=== PATIENT | female | born 1995 | race Caucasian/White ===

== ENCOUNTER 2025-05-01 11:40 | Outpatient (CLI) | payer OTHER, SELFPAY ==
--- OUTSIDE RECORDS SUMMARY | 2002-08-20 | XMS_ITS | Encounter Summary ---
Author Organization [facility] Address [address] [place] [address] Care Team Providers Care Outdoor Landscape Architect Name Role Phone Unavailable Primary Care Provider Unavailabl e Encounter Details Date Type Department Care Team (Late st Contact Info) Description 08/20/[address] [facility] Department of Radiology [address] [place] [phone] Social History Tobacco Use Types Packs/Day Years Used Date Smoking Tobacco: Never Assessed Comments Unknown Sex and Gender Information Value Date Recorded Sex Assigned at Not on file Legal Sex Female 5:13 AM EST Gender Identity Not on file Sexual Orientation Not on file documented as of this encounter Plan of Treatment Not on file documented as of this encounter Visit Diagnoses Not on filedocumented in this encounter
--- OUTSIDE RECORDS SUMMARY | 2017-12-21 14:45 | XMS_ITS | Encounter Summary ---
Author Organization [facility] [place] [address] Care Team Providers Care Rate Engineer Name Role Phone Lai Harley MD Primary Care Provider [phone] Encounter Details Date Type Department Care Team (Late st Contact Info) Description 12/21/2017 1:45 PM EST Hospital Encounter [place] [address] Social History Tobacco Use Types Packs/Day Years Used Date Smoking Tobacco: Former Cigarettes 0.3 1 1 12/07/2011 - 10/06/2013 Smokeless Tobacco: Never Alcohol Use Standard Drinks/Week Comments No 0 (1 standard drink = 0.6 oz pur e alcohol) PHQ-2 Answer Date Recorded PHQ-2 Total Score 0 11/06/2022 Sexually Active Control Partners Comments Yes Male Comments No Sex and Gender Information Value Date Recorded Sex Assigned at Not on file Legal Sex Female 8:21 PM EDT Gender Identity Not on file Sexual Orientation Not on file Occupation Industry Job Start Date Job End Date Not on file Not on file Not on file Not on file COVID-19 Exposure Response Date Recorded In the last 10 days, have yo u been in contact with someone who was confirmed or suspected to have Coronavirus/COVID-19? No / Unsure 11/06/2022 8:26 AM EST documented as of this encounter Functional Status * Cognitive and Functional Status Question Answer Date of Assessment Author Is the person deaf or does h e/she have serious difficulty hearing? No 11/09/2022 12:04 PM EST Sti th, Savannah Porras RN Is the person blind or does he/she have serious difficulty seeing even when wearing glasses? No 11/09/2022 12:04 PM Savannah Mendez RN Does this person have seriou s difficulty walking or climbing stairs? No 11/09/2022 12:04 PM Savannah Mendez RN Does this person have diffic ulty dressing or bathing? No 11/09/2022 12:04 PM Savannah Mendez RN * Alcohol Screening Score Answer Date of Assessment Author 0 11/06/2022 9:00 AM Becki Girard RN * Drug Screening Score Answer Date of Assessment Author 0 11/06/2022 9:00 AM Becki Girard RN * Question Answer Date of Assessment Author How often do you have a drin k containing alcohol? 0 11/06/2022 9:00 AM Mary Girard RN How many drinks containing a lcohol do you have on a typical day when you are drinking? 0 11/06/2022 9:00 AM Mary Girard RN How often do you have six or more drinks on one occasion? 0 11/06/2022 9:00 AM Missy Girard RN AUDIT-C to Determine Rows 4-10 0 11/06/2022 9:00 AM Mary Girard RN * Is the person deaf or does he/she have serious difficulty hearing? Answer Date of Assessment Author No 11/22/2017 10:26 PM Rand Shirley RN * Is the person blind or does he/she have serious difficulty seeing even when wearing glasses? Answer Date of Assessment Author No 11/22/2017 10:26 PM Rand Shirley RN * Does this person have serious difficulty walking or climbing stairs? Answer Date of Assessment Author No 11/22/2017 10:26 PM Rand Shirley RN * Does this person have difficulty dressing or bathing? Answer Date of Assessment Author No 11/22/2017 10:26 PM Rand Shirley RN * Because of a physical, mental or emotional condition, does this person have difficulty doing errands alone such as visiting a doctor's office or shopping? Answer Date of Assessment Author No 11/22/2017 10:26 PM Rand Shirley RN * PHQ-2 Total Score Answer Date of Assessment Author 0 11/06/2022 9:10 AM Becki Girard RN * PHQ-9 Total Score Answer Date of Assessment Author 0 11/06/2022 9:10 AM Becki Girard RN * Question Answer Date of Assessment Author Little interest or pleasure in doing things 0 11/06/2022 9:10 AM Mary Girard RN Feeling down, depressed, or hopeless 0 11/06/2022 9:10 AM Mary Girard RN * SHASHI-7 Total Score Answer Date of Assessment Author 0 11/06/2022 9:10 AM Becki Girard RN * Question Answer Date of Assessment Author Feeling Nervous, Anxious, or on Edge 0 11/06/2022 9:10 AM Mary Girard RN Not Being Able to Stop or Co ntrol Worrying 0 11/06/2022 9:10 AM Mary Girard RN Worrying too Much About Diff erent Things 0 11/06/2022 9:10 AM Mary Girard RN Trouble Relaxing 0 11/06/2022 9:10 AM Mary Luz RN Being so Restless That it is Hard to Sit Still 0 11/06/2022 9:10 AM Mary Girard RN Becoming Easily Annoyed or Irritable 0 11/06/2022 9:10 AM Mary Girard RN Feeling Afraid as if Somethi ng Awful Might Happen 0 11/06/2022 9:10 AM Mary Girard RN * Suicide Severity Rating Answer Date of Assessment Author No Risk 11/06/2022 8:26 AM Becki Girard RN * [place] Suicide Severity Rating Scale (Q shift for moderate and high) Question Answer Date of Assessment Author 1. In the past month, have y ou wished you were or wished you could go to sleep and not wake up? 0 11/06/2022 8:26 AM Mary Etienne, ERAN 2. In the past month, have y ou actually had any thoughts of killing yourself? (If no, skip to question 6) 0 11/06/2022 8:26 AM Mary Girard, ERAN 6. Have you ever done anythi ng, started to do anything, or prepared to do anything to end your life? 0 11/06/2022 8:26 AM Mary Girard RN documented as of this encounter Mental Status * Cognitive and Functional Status Question Answer Entry Date Author Because of a physical, menta l or emotional condition, does this person have difficulty doing errands alone such as visiting a doctor's office or shopping? No 11/09/2022 12:04 PM Savannah Mendez RN Because of a physical, menta l or emotional condition, does this person have serious difficulty concentrating, remembering or making decisions? No 11/09/2022 12:04 PM Savannah Mendez RN * Because of a physical, mental or emotional condition, does this person have serious difficulty concentrating, remembering or making decisions? Answer Entry Date Author No 11/22/2017 10:26 PM Rand Shirley RN documented in this encounter Plan of Treatment Not on file documented as of this encounter Goals Goal Patient Goal Type Associated Problems Recent Progress Patient-Stated? Author Maintain a healthy diet, exercise regularly and maintain an ideal body weight General No Catalina Salinas LPN Stay Tobacco Free Lifestyle No Catalina Salinas LPN documented as of this encounter Visit Diagnoses Not on filedocumented in this encounter Additional Health Concerns Infection Onset Date Last Indicated Resolved Time INFLUENZA 11/22/2017 11/22/2017 01/08/2018 8:21 AM EST documented as of this encounter Care Teams Rate Engineer Relationship Specialty Start Date End Date Lai Harley MD [address] [place] [address] PCP - General 04/11/11 03/30/20 documented as of this encounter
[2025-05-01 18:29] LABS: Basophils % 0.3 % (0.1-2.0); Eosinophils % 0.3 % (0.1-12.0); Hematocrit 43.5 % (37.0-47.0); Hemoglobin 13.9 g/dL (12.2-16.2); Immature Granulocytes # 0.05 10^3uL; Immature Granulocytes % 0.4 %; Lymphocytes # 1.7 K/mm3 (0.7-4.5); Lymphocytes % 12.6 % (10-50); Mean Corpuscular Hemoglobin 26.7 pg (27.0-31.2); Mean Corpuscular Volume 83.5 fl (81-99); Mean Platelet Volume 8.8 fl (7.4-10.4); Monocytes # 0.7 K/mm3 (0.1-1.0); Monocytes % 5.4 % (1.7-9.3); Neutrophils # 10.7 K/mm3 (1.8-7.8); Nucleated Red Blood Cells # 0 10^3/uL; Nucleated Red Blood Cells % 0 %; Platelet Count 276 K/mm3 (142-424); Red Blood Count 5.21 M/mm3 (4.20-5.40); Red Cell Distribution Width 13.2 % (11.5-17.5); Red Cell Distribution Width-SD 40.8 fL; White Blood Count 13.2 K/mm3 (4.8-10.8)
[2025-05-01 19:17] LABS: Alanine Aminotransferase 14 U/L (12-78); Albumin Level 4.8 g/dl (3.5-5.0); Albumin/Globulin Ratio 1.5 (1.1-1.8); Alkaline Phosphatase 51 U/L (38-126); Anion Gap 14.4 mEq/L (5-15); Aspartate Amino Transferase 22 U/L (14-36); Bilirubin,Total 0.9 mg/dl (0.2-1.3); Blood Urea Nitrogen 11 mg/dl (7-17); Calcium 9.9 mg/dl (8.4-10.2); Carbon Dioxide 26 mmol/L (22.0-30.0); Chloride 99 mmol/L (98-107); Estimated Glomerular Filt Rate 99 ml/min (>60); GFR (African American) 120 ML/MIN (>60); Globulin 3.1 g/dL (1.3-3.2); Glucose 92 mg/dl (74-100); Potassium 4.4 mmoL/L (3.5-5.1); Sodium 135 mmol/L (136-145); Total Protein,Serum 7.9 g/dl (6.3-8.2)
[2025-05-01 19:44] LABS: Thyroid Stimulating Hormone 1.08 uIU/mL (0.465-4.68)
[2025-05-01 19:54] LABS: HIV Combo NEGATIVE (Negative)
[2025-05-01 20:03] LABS: Hepatitis C Ab Qual. W/ RFX NEGATIVE (Negative)
--- OUTSIDE RECORDS SUMMARY | 2025-05-02 10:18 | XMS_ITS | Encounter Summary ---
Author Organization [facility] Address [address] [place] [address] Care Team Providers Care Band Sewer Name Role Phone Jazmin Barnett M.D. Primary Care Provider [phone] Encounter Details Date Type Department Care Team (Late st Contact Info) Description 06/12/2008 Clinical Note [facility] Division of Dentistry [address] [place] [phone] Provider, Historical Social History Tobacco Use Types Packs/Day Years Used Date Smoking Tobacco: Never Assessed Comments Unknown Sex and Gender Information Value Date Recorded Sex Assigned at Not on file Legal Sex Female 5:13 AM EST Gender Identity Not on file Sexual Orientation Not on file documented as of this encounter Progress Notes * Provider, Historical - 06/12/2008 12:00 AM EDT P: Hygiene~T: Med hx rev, exam, prophy, F-tx, bwx x 2 read/dx. Decay as charted. Encouraged flossing, OHI given. ~E: +~N:RTC for #15(L), 18(b) resin. #18 partially subgingival (use RDI and consider amalgam if needed). ~~I approve the patient-related information obtained by the insurance administrative assistant, hygienist,resident and/or attending pertaining to the patient's condition, findings, history and/or treatment.~Dentist/Painter Plate verified correct patient, correct site, correct procedure, correct positioning of patient and special equipment if needed, with Dentist/Painter Plate performing procedure immediately prior to beginning the procedure.~Note authored by: Ryan Jennings ([email or web address]) documented in this encounter Plan of Treatment Not on file documented as of this encounter Visit Diagnoses Not on filedocumented in this encounter Care Teams Band Sewer Relationship Specialty Start Date End Date Jazmin Barnett M.D. [address] [facility] [place] [address] PCP - General 06/12/08 documented as of this encounter
--- OUTSIDE RECORDS SUMMARY | 2025-05-02 10:18 | XMS_ITS | Encounter Summary ---
Author Organization [facility] Address [address] [place] [address] Care Team Providers Care Polo Coach Name Role Phone Jazmin Barnett M.D. Primary Care Provider [phone] Encounter Details Date Type Department Care Team (Late st Contact Info) Description 06/12/2008 Clinical Note [facility] Division of Dentistry [address] [place] [phone] Provider, Historical Social History Tobacco Use Types Packs/Day Years Used Date Smoking Tobacco: Never Assessed Comments Unknown Sex and Gender Information Value Date Recorded Sex Assigned at Not on file Legal Sex Female 5:13 AM EST Gender Identity Not on file Sexual Orientation Not on file documented as of this encounter Progress Notes * Provider, Historical - 06/12/2008 12:00 AM EDT Dentist/Barrel Inspector verified correct patient, correct site, correct procedure, correct positioning ofpatient and special equipment if needed, with Dentist/Barrel Inspector performing procedure immediately prior to beginning the procedure.~Note authored by: Halima Mead ([email or web address]) documented in this encounter Plan of Treatment Not on file documented as of this encounter Visit Diagnoses Not on filedocumented in this encounter Care Teams Polo Coach Relationship Specialty Start Date End Date Jazmin Barnett M.D. [address] [facility] [place] [address] PCP - General 06/12/08 documented as of this encounter
--- OUTSIDE RECORDS SUMMARY | 2025-05-02 10:18 | XMS_ITS | Encounter Summary ---
Author Organization [facility] Address [address] [place] [address] Care Team Providers Care Squad Sergeant Name Role Phone Jazmin Barnett M.D. Primary Care Provider [phone] Encounter Details Date Type Department Care Team (Late st Contact Info) Description 11/30/2007 Clinical Note [facility] Division of Dentistry [address] [place] [phone] Provider, Historical Social History Tobacco Use Types Packs/Day Years Used Date Smoking Tobacco: Never Assessed Comments Unknown Sex and Gender Information Value Date Recorded Sex Assigned at Not on file Legal Sex Female 5:13 AM EST Gender Identity Not on file Sexual Orientation Not on file documented as of this encounter Progress Notes * Provider, Historical - 11/30/2007 12:00 AM EST P: Caries on #19-m~T: N2O/O2 0:50:0 for 20 min, 3 min O2 flush. 36 mg lidocaine w/ 1:100,[address], MP.~ - #19 MO resin - prepped, t-band, [id number]-bneh-RGM, finished and polished, checked margins, sealed occlusal.~E: ++~N: 6MRNote authored by: Anirudh Loza ([email or web address]) documented in this encounter Plan of Treatment Not on file documented as of this encounter Visit Diagnoses Not on filedocumented in this encounter Care Teams Squad Sergeant Relationship Specialty Start Date End Date Jazmin Barnett M.D. [address] [facility] [place] [address] PCP - General 06/12/08 documented as of this encounter
--- OUTSIDE RECORDS SUMMARY | 2025-05-02 10:18 | XMS_ITS | Clinical Summary ---
Author Organization [facility] Address [address] [place] [address] Care Team Providers Care Outdoor Illuminating Engineer Name Role Phone Jazmin Barnett M.D. Primary Care Provider [phone] Source Comments [facility] is fully rolled [facility] with thefollowing exceptions:[facility] Social History Tobacco Use Types Packs/Day Years Used Date Smoking Tobacco: Never Assessed Comments Unknown Sex and Gender Information Value Date Recorded Sex Assigned at Not on file Legal Sex Female 5:13 AM EST Gender Identity Not on file Sexual Orientation Not on file Plan of Treatment Health Maintenance Due Date Last Done Comments VARICELLA IMMUNIZATION (1 of 2 - 13+ 2-dose series) 2008 COVID-19 Vaccine ( season) 2024 AMB SEASONAL FLU VACCINE (Season Ended) 2025 DTAP/Tdap/Td IMMUNIZATION (8 - Td or Tdap) 11/20/2027 11/20/2017, 06/05/2006, 07/07/1999, Additional history exists HEPATITIS B IMMUNIZATION Completed 996, 1995, 1995 HIB IMMUNIZATION Completed 09/12/1996, , 1995, Additional history exists IPV IMMUNIZATION Completed 07/07/1999, , 1995, Additional history exists MMR IMMUNIZATION Completed 07/17/1999, 09/12/1996 MCV4 IMMUNIZATION Aged Out 08/10/2007 No longer eligible based on patient's age to complete this topic HPV IMMUNIZATION Aged Out No longer e ligible based on patient's age to complete this topic MENINGOCOCCAL B VACCINE Aged Out No l onger eligible based on patient's age to complete this topic PNEUMOCOCCAL IMMUNIZATION Aged Out No longer eligible based on patient's age to complete this topic Respiratory Syncytial Virus (RSV) <20mo Aged Out No longer eligible based on patient's age to complete this topic Care Teams Outdoor Illuminating Engineer Relationship Specialty Start Date End Date Jazmin Barnett M.D. [address] [facility] [place] [address] PCP - General 06/12/08
--- OUTSIDE RECORDS SUMMARY | 2025-05-02 10:18 | XMS_ITS | Encounter Summary ---
Author Organization [facility] Address [address] [place] [address] Care Team Providers Care Floor Representative Name Role Phone Jazmin Barnett M.D. Primary Care Provider Encounter Details Date Type Department Care Team (Late st Contact Info) Description 03/16/2009 Clinical Note [facility] Division of Dentistry [address] [place] [phone] Provider, Historical Social History Tobacco Use Types Packs/Day Years Used Date Smoking Tobacco: Never Assessed Comments Unknown Sex and Gender Information Value Date Recorded Sex Assigned at Not on file Legal Sex Female 5:13 AM EST Gender Identity Not on file Sexual Orientation Not on file documented as of this encounter Progress Notes * Provider, Historical - 03/16/2009 12:00 AM EDT Dentist/Line Erector Apprentice verified correct patient identification, procedures with materials and special equipment if needed, images or relevant labs, irrigation solutions (other than water), need for antibiotics, precautions based on medical or medication history.~~: [birth year] ~~Name of Participants in the Time Out: gosnell [email or web address] mcitnosh ~~Pain?: Yes___x_ No ____~Pain Score for visit:___5____~Pain Scale used: (choose one: Marianela Visual Analog Scale, FLACC) ____oucher ~~Note authored by: Carmen Canales ([email or web address]) documented in this encounter Plan of Treatment Not on file documented as of this encounter Visit Diagnoses Not on filedocumented in this encounter Care Teams Floor Representative Relationship Specialty Start Date End Date Jazmin Barnett M.D. [address] [facility] [place] [address] PCP - General 06/12/08 documented as of this encounter
--- OUTSIDE RECORDS SUMMARY | 2025-05-02 10:18 | XMS_ITS | Encounter Summary ---
Author Organization [facility] Address [address] [place] [address] Care Team Providers Care Coal Picker Name Role Phone Jazmin Barnett M.D. Primary Care Provider [phone] Encounter Details Date Type Department Care Team (Late st Contact Info) Description 03/20/[address] [facility] Division of Dentistry [address] [place] [phone] Provider, Historical Social History Tobacco Use Types Packs/Day Years Used Date Smoking Tobacco: Never Assessed Comments Unknown Sex and Gender Information Value Date Recorded Sex Assigned at Not on file Legal Sex Female 5:13 AM EST Gender Identity Not on file Sexual Orientation Not on file documented as of this encounter Progress Notes * Provider, Historical - 03/20/2009 12:00 AM EDT Dentist/Head Host/Hostess verified correct patient identification, procedures with materials and special equipment if needed, images or relevant labs, irrigation solutions (other than water), need for antibiotics, precautions based on medical or medication history.~~: 1995 ~~Name of Participants in the Time Out:__cross/tran ~~Pain?: Yes____ No ____~Pain Score for visit: ~Pain Scale used: (choose one: Marianela Visual Analog Scale, FLACC) ~~Note authored by: Nina Noe ([email or web address]) documented in this encounter Plan of Treatment Not on file documented as of this encounter Visit Diagnoses Not on filedocumented in this encounter Care Teams Coal Picker Relationship Specialty Start Date End Date Jazmin Barnett M.D. [address] [facility] [place] [address] PCP - General 06/12/08 documented as of this encounter
--- OUTSIDE RECORDS SUMMARY | 2025-05-02 10:18 | XMS_ITS | Encounter Summary ---
Author Organization [facility] Address [address] [place] [address] Care Team Providers Care Extra Hand Name Role Phone Jazmin Barnett M.D. Primary Care Provider [phone] Encounter Details Date Type Department Care Team (Late st Contact Info) Description 04/14/2009 Clinical Note [facility] Division of Dentistry [address] [place] [phone] Provider, Historical Social History Tobacco Use Types Packs/Day Years Used Date Smoking Tobacco: Never Assessed Comments Unknown Sex and Gender Information Value Date Recorded Sex Assigned at Not on file Legal Sex Female 5:13 AM EST Gender Identity Not on file Sexual Orientation Not on file documented as of this encounter Progress Notes * Provider, Historical - 04/14/2009 12:00 AM EDT I was present for the procedure. Reviewed the resident note and concurred.~Note authored by: Lukas Bell ([email or web address]) documented in this encounter Plan of Treatment Not on file documented as of this encounter Visit Diagnoses Not on filedocumented in this encounter Care Teams Extra Hand Relationship Specialty Start Date End Date Jazmin Barnett M.D. [address] [place] [address]., [address] [place] [address] PCP - General 06/12/08 documented as of this encounter
--- OUTSIDE RECORDS SUMMARY | 2025-05-02 10:18 | XMS_ITS | Encounter Summary ---
Author Organization [facility] Address [address] [place] [address] Care Team Providers Care Sales Vice President Name Role Phone Jazmin Barnett M.D. Primary Care Provider [phone] Encounter Details Date Type Department Care Team (Late st Contact Info) Description 08/14/2007 Clinical Note [facility] Division of Dentistry [address] [place] [phone] Provider, Historical Social History Tobacco Use Types Packs/Day Years Used Date Smoking Tobacco: Never Assessed Comments Unknown Sex and Gender Information Value Date Recorded Sex Assigned at Not on file Legal Sex Female 5:13 AM EST Gender Identity Not on file Sexual Orientation Not on file documented as of this encounter Progress Notes * Provider, Historical - 08/14/2007 12:00 AM EDT I was present for the visit. Reviewed the findings and films. Agree with treatment plan. Prevident may be needed in the future.~Note authored by: Kai Meehan ([email or web address]) documented in this encounter Plan of Treatment Not on file documented as of this encounter Visit Diagnoses Not on filedocumented in this encounter Care Teams Sales Vice President Relationship Specialty Start Date End Date Jazmin Barnett M.D. [address] [facility] [place], [place] [id number] PCP - General 06/12/08 documented as of this encounter
--- OUTSIDE RECORDS SUMMARY | 2025-05-02 10:18 | XMS_ITS | Clinical Summary ---
Author Organization [facility] Address [address] [address] Phone Care Team Providers Care Inpatient Care Manager Rn Name Role Phone Colleen Olson Girma RUEDA Primary Care Provider + Allergies No known active allergies Medications vit no.[id number] c 27 mg iron- 800 mcg Oral Tablet Take 1 Tablet by mouth daily. Active Active Problems Problem Noted Date Diagnosed Date Normal labor 11/06/2022 39 weeks gestation of 01/31/2018 Shoulder dystocia during labor and delivery, del ivered 01/31/2018 Hx of macrosomia in i n prior , currently 06/25/2017 Overview (06/25/2017): 9lb 6oz; no GDM; no complications with delivery Environmental allergies 07/24/2012 Asthma 07/24/2012 ADHD (attention deficit hyperactivity disorder) Overview (03/07/2011): Sees psychiatry. Encounter for suspected PROM , with rupture of membranes not found Resolved Problems Problem Noted Date Diagnosed Date Resolved Date (normal spontaneous vaginal delivery) 01/31/2018 11/06/2022 Overview (01/31/2018): VFI Addyson Breast Supervision of other normal , antepartum 06/25/2017 11/06/2022 Overview (01/17/2018): CNM pt It's a GIRL! Addyson QUAD/CF:nm;/nml Dating by 6 week sonogram Gita US 18w2d 3vc ant placenta GBS neg Asthma 07/24/2012 11/22/2017 Immunizations Immunization Administration Dates Next Due DTaP 07/07/1999, 6,01/31/1996,1995,1995 Hepatitis B, Unspecified Formulation 06/05/1996, 1995,1995 HiB, Unspecified Formulation 09/12/1996, 01/31/1996,1995,1994 IPV 07/07/1999, 6,1995,1994 MMR 07/17/1999,09/12/1996 Meningococcal Conjugate 08/10/2007 PPD Test 06/17/2011 Tdap 11/20/2017,06/05/2006 Surgical History Surgery Date Site/Laterality Comments DILATION AND CURETTAGE OF UTERUS 02/17/2014 N/A HYSTEROSCOPY INTRAUTERINE DEVICE REMOVAL ; Surgeon: Paige Wright MD; Location: [facility]; Service: Gynecology Medical History Medical History Date Comments ADHD (attention deficit hyperactivity disorder) ADD (attention deficit disorder) Miscarriage Asthma 07/24/2012 Family History Medical History Relation Name Comments No Known Problems Father Colon Cancer Maternal Grandfather No Known Problems Maternal Grandmother Labor Mother Spont Abortions Mother Diabetes Paternal Grandfather Heart Attack Paternal Grandfather Heart Disease Paternal Grandfather stents , CABG Cancer Paternal Grandmother Hypertension Paternal Grandmother Thyroid Disease Paternal Grandmother Relation Name Status Comments Father Alive Maternal Grandfather Alive Maternal Grandmother Alive Mother Alive Paternal Grandfather Paternal Grandmother Social History Tobacco Use Types Packs/Day Years Used Date Smoking Tobacco: Former Cigarettes 0.3 1 1 12/07/2011 - 10/06/2013 Smokeless Tobacco: Never Tobacco Cessation:Counseling Given: Not Answered Alcohol Use Standard Drinks/Week Comments No 0 [...] file Not on file Not on file Obstetrics History Para Term AB IAB SAB Ectopic Multiple Livin g Live Births 6 4 3 1 2 2 0 4 4 Date Outcome GA Total Labor Labor/2nd/3rd Weight Sex Type Anes PTL Arianna A1 A5 Name Clin 2009 Term 0h 15m 9 lb (4.082 kg) F Vag-S pont Epidur al N Livin g 9 9 LOBO MEDINA GIRL 1 Pool Lyles, RN Complications:None Delivery Location:[facility] 2014 SAB 2017 Term 39w 5d 0h 06m 0h 06m 9 lb 4.5 oz (4.21 kg) F Vag-S pont Epidur al N Livin g 8 9 LOBO MEDINA BABY BraedenJudy may CNM Complications:Shoulder dysto abby during labor and delivery,Macrosomia Delivery Location:[facility] 2018 SAB SAB Delivery Location:Other 2019 Term 37w 0d F Vag-S pont Epidur al Livin g Complications:None Delivery Location:Other 2022 36w 3d 0h 05m 0h 05m 6 lb 0.5 oz (2.735 kg) M Vag-S pont Epidur al N Livin g 8 9 SHERRIE GARCIA Amanda Marie, CNM Complications:Velamentous in sertion of umbilical cord in third trimester Delivery Location:[facility] ([facility]) Last Filed Vital Signs Vital Sign Reading Time Taken Comments Blood Pressure 118/72 01/02/2024 9:01 AM EST Pulse 75 01/02/2024 9:01 AM EST Temperature 36.6 C (97.9 F) 01/02/2024 9:01 AM EST Respiratory Rate 16 12/20/2023 3:27 PM EST Oxygen Saturation 98% 01/02/2024 9:01 AM EST Inhaled Oxygen Concentration - - Weight 77.1 kg (170 lb) 01/02/2024 9:01 AM EST Height 160 cm (5' 3 ) 01/02/2024 9:01 AM EST Body Mass Index 30.11 01/02/2024 9:01 AM EST Plan of Treatment Health Maintenance Due Date Last Done Comments Pneumococcal Vaccine 0-49 (1 of 2 - PCV) 2014 Annual Wellness Exam 05/26/2024 05/26/2023 COVID-19 Vaccine ( season) 2024 Influenza Vaccine (Season Ended) 2025 10/19/2017 (Declined) Cervical Cancer Screening 01/11/2026 Pap Smear 01/11/2026 01/11/2023, 06/06, 11/04/2010, Additional history exists DTaP/TDaP/Td (9 - Td or Tdap) 03/04/2030 03/04/2020, 11/20/2017, 06/05/2006, Additional history exists Hepatitis B Vaccine Completed 06/05/1996, 1995, 1995 Chlamydia Screening Discontinued 10/27/2022, 09/22/2022, 01/04/2018, Additional history exists Meningococcal B Vaccine Aged Out No l onger eligible based on patient's age to complete this topic Goals Goal Patient Goal Type Associated Problems Recent Progress Patient-Stated? Author Maintain a healthy diet, exercise regularly and maintain an ideal body weight General No Catalina Salinas LPN Stay Tobacco Free Lifestyle No Catalina Salinas LPN Procedures Procedure Name Priority Date/Time Associated Diagnosis Comments CHLAMYDIA/GC BY TMA STAT 10/27/2022 1 1:00 PM EST CLUTCH REBUILDER CYTOLOGY REPORT Routine 06/22/2017 3 :09 PM EDT from Last 3 Months or Most Recently Relevant to Health Maintenance Results * CHLAMYDIA/GC BY TMA (10/27/2022 11:00 PM EST) Chlamydia trachomatis Not Detected Not Detected 10/28/2022 12:09 PM EST PREFERRED LAB [facility] [place] Neisseria gonorrhoeae Not Detected Not Detected 10/28/2022 12:09 PM EST PREFERRED LAB [facility] [place] Thin Prep SPECIMEN FROM UTERINE CERVIX / Unknown 10/27/2022 11:00 PM EST 10/27/2022 11:07 PM EST Narrative PREFERRED [facility] - 10/28/2022 12:09 PM EST Testing methodology is animal care assistant mediated amplification (TMA) using the Aptima Combo 2 assay from [employer]. A negative result does not completely rule out a Chlamydia trachomatis or Neisseria gonorrhoeae infection due to potential inhibitors or levels present below the limit of detection by this assay. Results are dependent on proper collection and transport of specimen. This test is indicated for medical purposes only and should not be used for legal or forensic purposes. The performance characteristics of this assay were validated by the testing laboratory. This assay is FDA cleared to test the following specimens: clinician-collected endocervical, vaginal, male urethral swab specimens, rectal swabs, and throat/pharyngeal swabs; patient collected vaginal specimens within a clinic setting; Thin Prep Specimens in PreservCyt Solution; and first-stream, unpreserved male and female urine specimens. Detailed methodology is available upon request. Alise Stevenson DO MICROBIOLOGY - GENERAL ORDERABLE S Final Result Blurb [address] [facility], [place] [address] * CLUTCH REBUILDER CYTOLOGY REPORT (06/22/2017 3:09 PM EDT) Geochemistry Teacher Cytology Report PATIENT NAME:CLAUDETTE MEDINA Geochemistry Teacher Cytology Report Accession Number Collected Date/Time Received Date/Time [id number] 06/22/17 15:09 EDT 06/22/17 16:03 EDT GY Specimen Source Specimen Vag/Cerv/Endocx?: Cerv/Endocerv Statement of Adequacy Satisfactory for Evaluation. Transformation Zone Present. Diagnosis NEGATIVE FOR INTRAEPITHELIAL LESION OR MALIGNANCY. Comment This case was not successfully Imaged due to technical reasons and was manually rescreened. The Pap Smear is a screening test that aids in the detection of cervical cancer and cancer precursors. Both false positive and false negative results can occur. The test should be used at regular intervals, and positive results should be confirmed before definitive therapy. Processed using the ThinPrep Landfill Grader automated cytology screening device (Freespee). Stamper Blocker: MELINA GILLILAND 06/27/2017 Completed by: DIRK Weeks (Electronically signed by) 06/27/2017 [facility] 06/22/2017 3:09 PM EDT us Dahlia Nash CNM PATHOLOGY ORDERABLES Fi nal Result [facility] [address] [place] [address] from Last 3 Months or Most Recently Relevant to Health Maintenance Insurance Advance Directives For more information, please contact: [phone] * Full Code (Latest Code Status on File) Date Activated Date Inactivated Comments 11/06/2022 8:56 AM 11/09/2022 4:40 PM * Full Code Date Activated Date Inactivated Comments 01/31/2018 6:02 AM 02/02/2018 8:22 PM Care Teams Inpatient Care Manager Rn Relationship Specialty Start Date End Date Colleen Olson, AGENT [address] [place] [address] PCP - General Nurse Practitioner 05/26/23
--- OUTSIDE RECORDS SUMMARY | 2025-05-02 10:18 | XMS_ITS | Encounter Summary ---
Author Organization [facility] Address [address] [place] [address] Care Team Providers Care Human Resources Hr Generalist Name Role Phone Jazmin Barnett M.D. Primary Care Provider [phone] Encounter Details Date Type Department Care Team (Late st Contact Info) Description 04/14/2009 Clinical Note [facility] Division of Dentistry [address] [place] [phone] Provider, Historical Social History Tobacco Use Types Packs/Day Years Used Date Smoking Tobacco: Never Assessed Comments Unknown Sex and Gender Information Value Date Recorded Sex Assigned at Not on file Legal Sex Female 5:13 AM EST Gender Identity Not on file Sexual Orientation Not on file documented as of this encounter Progress Notes * Provider, Historical - 04/14/2009 12:00 AM EDT Dentist/Jewelry Estimator/Hygienist verified correct patient. ~~:___1995 ~~Pain?: Yes____ No __x__~Pain Score for visit: ~Pain Scale used: (choose one: Marianela Visual Analog Scale, FLACC) ~~Note authored by: Earline Bowen ([email or web address]) documented in this encounter Plan of Treatment Not on file documented as of this encounter Visit Diagnoses Not on filedocumented in this encounter Care Teams Human Resources Hr Generalist Relationship Specialty Start Date End Date Jazmin Barnett M.D. [address] [facility] [address] [place] [address] PCP - General 06/12/08 documented as of this encounter
--- OUTSIDE RECORDS SUMMARY | 2025-05-02 10:18 | XMS_ITS | Encounter Summary ---
Author Organization [facility] Address [address] [place] [address] Care Team Providers Care Employment Attorney Name Role Phone Jazmin Barnett M.D. Primary Care Provider [phone] Encounter Details Date Type Department Care Team (Late st Contact Info) Description 04/14/2009 Clinical Note [facility] Division of Dentistry [address] [place] [phone] Provider, Historical Social History Tobacco Use Types Packs/Day Years Used Date Smoking Tobacco: Never Assessed Comments Unknown Sex and Gender Information Value Date Recorded Sex Assigned at Not on file Legal Sex Female 5:13 AM EST Gender Identity Not on file Sexual Orientation Not on file documented as of this encounter Progress Notes * Provider, Historical - 04/14/2009 12:00 AM EDT Dentist/Forensic Structural Engineer/Hygienist verified correct patient. ~~:__1995 ~~Pain?: Yes____ No __X__~Pain Score for visit:__0 ~Pain Scale used: (choose one: Marianela Visual Analog Scale, FLACC) ___Oucher Note authored by: Anirudh Loza ([email or web address]) documented in this encounter Plan of Treatment Not on file documented as of this encounter Visit Diagnoses Not on filedocumented in this encounter Care Teams Employment Attorney Relationship Specialty Start Date End Date Jazmin Barnett M.D. [address] [facility] [place] [address] PCP - General 06/12/08 documented as of this encounter
--- OUTSIDE RECORDS SUMMARY | 2025-05-02 10:18 | XMS_ITS | Encounter Summary ---
Author Organization [facility] Address [address] [place] [address] Care Team Providers Care Postal Service Sectional Center Manager Name Role Phone Jazmin Barnett M.D. Primary Care Provider [phone] Encounter Details Date Type Department Care Team (Late st Contact Info) Description 10/10/2007 Clinical Note [facility] Division of Dentistry [address] [place] [phone] Provider, Historical Social History Tobacco Use Types Packs/Day Years Used Date Smoking Tobacco: Never Assessed Comments Unknown Sex and Gender Information Value Date Recorded Sex Assigned at Not on file Legal Sex Female 5:13 AM EST Gender Identity Not on file Sexual Orientation Not on file documented as of this encounter Progress Notes * Provider, Historical - 10/10/2007 12:00 AM EST I was present for the visit. Reviewed the findings. Agree with treatment plan.~Note authored by: Kai Meehan ([email or web address]) documented in this encounter Plan of Treatment Not on file documented as of this encounter Visit Diagnoses Not on filedocumented in this encounter Care Teams Postal Service Sectional Center Manager Relationship Specialty Start Date End Date Jazmin Barnett M.D. [address] [place] [address]., [address] [place] [address] PCP - General 06/12/08 documented as of this encounter
--- OUTSIDE RECORDS SUMMARY | 2025-05-02 10:18 | XMS_ITS | Encounter Summary ---
Author Organization [facility] Address [address] [place] [address] Care Team Providers Care Pest Control Worker Name Role Phone Jazmin Barnett M.D. Primary Care Provider [phone] Encounter Details Date Type Department Care Team (Late st Contact Info) Description 10/10/2007 Clinical Note [facility] Division of Dentistry [address] [place] [phone] Provider, Historical Social History Tobacco Use Types Packs/Day Years Used Date Smoking Tobacco: Never Assessed Comments Unknown Sex and Gender Information Value Date Recorded Sex Assigned at Not on file Legal Sex Female 5:13 AM EST Gender Identity Not on file Sexual Orientation Not on file documented as of this encounter Progress Notes * Provider, Historical - 10/10/2007 12:00 AM EST Dentist/Wood Shop Teacher verified correct patient, correct site, correct procedure, correct positioning ofpatient and special equipment if needed, with Dentist/Wood Shop Teacher performing procedure immediately prior to beginning the procedure.~0 painNote authored by: Ingris Santacruz ([email or web address]) documented in this encounter Plan of Treatment Not on file documented as of this encounter Visit Diagnoses Not on filedocumented in this encounter Care Teams Pest Control Worker Relationship Specialty Start Date End Date Jazmin Branett M.D. [address] [place] [address] PCP - General 06/12/08 documented as of this encounter
--- OUTSIDE RECORDS SUMMARY | 2025-05-02 10:18 | XMS_ITS | Encounter Summary ---
Author Organization [facility] Address [address] [place] [address] Care Team Providers Care Tech Ed Teacher Name Role Phone Jazmin Barnett M.D. Primary Care Provider Encounter Details Date Type Department Care Team (Late st Contact Info) Description 07/24/2008 Clinical Note [facility] Division of Dentistry [address] [place] [phone] Provider, Historical Social History Tobacco Use Types Packs/Day Years Used Date Smoking Tobacco: Never Assessed Comments Unknown Sex and Gender Information Value Date Recorded Sex Assigned at Not on file Legal Sex Female 5:13 AM EST Gender Identity Not on file Sexual Orientation Not on file documented as of this encounter Progress Notes * Provider, Historical - 07/24/2008 12:00 AM EDT P: Patient presents for restorative~T: PMH reviewed~ N20/02 0-50-0, 4L/min, 30 min, 3 min post-op 02 flush~ 2% lido with 1:100K epI 18mg infiltration~ 4% articaine with 1:100K epi 1.7ml infiltration~[place]/MP~ #15 - OL resin - remove decay, A/E, Optibond, TPH A1~ #18, #31 - Buccal Amalgam - remove decay, condense carve and burnish amalgam~ Lip biting precuations given~E: +/+~N:6 month recall~~I approve the patient-related information obtained by the cardiology physician assistant, hygienist, resident and/or attending pertaining to the patient's condition, findings, history and/or treatment.~Note authored by:Chintan Brunson ([email or web address]) documented in this encounter Plan of Treatment Not on file documented as of this encounter Visit Diagnoses Not on filedocumented in this encounter Care Teams Tech Ed Teacher Relationship Specialty Start Date End Date Jazmin Barnett M.D. [address] [facility], [address] [place] [address] PCP - General 06/12/08 documented as of this encounter
--- OUTSIDE RECORDS SUMMARY | 2025-05-02 10:18 | XMS_ITS | Encounter Summary ---
Author Organization [facility] Address [address] [place] [address] Care Team Providers Care Waterproofing Supervisor Name Role Phone Jazmin Barnett M.D. Primary Care Provider [phone] Encounter Details Date Type Department Care Team (Late st Contact Info) Description 04/14/2009 Clinical Note [facility] Division of Dentistry [address] [place] [phone] Provider, Historical Social History Tobacco Use Types Packs/Day Years Used Date Smoking Tobacco: Never Assessed Comments Unknown Sex and Gender Information Value Date Recorded Sex Assigned at Not on file Legal Sex Female 5:13 AM EST Gender Identity Not on file Sexual Orientation Not on file documented as of this encounter Progress Notes * Provider, Historical - 04/14/2009 12:00 AM EDT Dentist/Credit Risk Modeler verified correct patient identification, procedures with materials and special equipment if needed, images or relevant labs, irrigation solutions (other than water), need for antibiotics, precautions based on medical or medication history.~~:___1995 ~~Name of Participants in the Time Out:_/Niels ~~Pain?: Yes____ No __x__~Pain Score for visit: ~Pain Scale used: (choose one: Marianela Visual Analog Scale, FLACC) ~~Note authored by: Elizabeth Bello ([email or web address]) documented in this encounter Plan of Treatment Not on file documented as of this encounter Visit Diagnoses Not on filedocumented in this encounter Care Teams Waterproofing Supervisor Relationship Specialty Start Date End Date Jazmin Barnett M.D. [address] [facility] [place] [address] PCP - General 06/12/08 documented as of this encounter
--- OUTSIDE RECORDS SUMMARY | 2025-05-02 10:18 | XMS_ITS | Encounter Summary ---
Author Organization [facility] Address [address] [place] [address] Care Team Providers Care Cement Mason [address] [address] Name Role Phone Jazmin Barnett M.D. Primary Care Provider [phone] Encounter Details Date Type Department Care Team (Late st Contact Info) Description 07/24/2008 Clinical Note [facility] Division of Dentistry [address] [place] [phone] Provider, Historical Social History Tobacco Use Types Packs/Day Years Used Date Smoking Tobacco: Never Assessed Comments Unknown Sex and Gender Information Value Date Recorded Sex Assigned at Not on file Legal Sex Female 5:13 AM EST Gender Identity Not on file Sexual Orientation Not on file documented as of this encounter Progress Notes * Provider, Historical - 07/24/2008 12:00 AM EDT Dentist/Citizen Participation Specialist verified correct patient, correct site, correct procedure, correct positioning ofpatient and special equipment if needed, with Dentist/Citizen Participation Specialist performing procedure immediately prior to beginning the procedure.~~~Pain score for visit __0__; ~Pain scale used (Choose one: Brian Bear isual analog scale, FLACC) :___davincher .~Note authored by: Heather Winters ([email or web address]) documented in this encounter Plan of Treatment Not on file documented as of this encounter Visit Diagnoses Not on filedocumented in this encounter Care Teams Cement Mason [employer] [address] Relationship Specialty Start Date End Date Jazmin Barnett M.D. [address] [facility] [place] [address] PCP - General 06/12/08 documented as of this encounter
--- OUTSIDE RECORDS SUMMARY | 2025-05-02 10:18 | XMS_ITS | Encounter Summary ---
Author Organization [facility] Address [address] [place] [address] Care Team Providers Care Agent Contract Clerk Name Role Phone Jazmin Barnett M.D. Primary Care Provider [phone] Encounter Details Date Type Department Care Team (Late st Contact Info) Description 04/14/2009 Clinical Note [facility] Division of Dentistry [address] [place] [phone] Provider, Historical Social History Tobacco Use [...] AM EDT I was present for the critial portions of the appointment. I was present for the oral exam and history. I reviewed the findings and agree with the resident's assessment, treatment plan, and care provided.~Note authored by: Lukas Bell ([email or web address]) documented in this encounter Plan of Treatment Not on file documented as of this encounter Visit Diagnoses Not on filedocumented in this encounter Care Teams Agent Contract Clerk Relationship Specialty Start Date End Date Jazmin Barnett M.D. [address] [facility] [place] [address] PCP - General 06/12/08 documented as of this encounter
--- OUTSIDE RECORDS SUMMARY | 2025-05-02 10:18 | XMS_ITS | Encounter Summary ---
Author Organization [facility] Address [address] [place] [address] Care Team Providers Care Artist Woodblock Name Role Phone Jazmin Barnett M.D. Primary Care Provider [phone] Encounter Details Date Type Department Care Team (Late st Contact Info) Description 04/14/2009 Clinical Note [facility] Division of Dentistry [address] [place] [phone] Provider, Historical Social History Tobacco Use Types Packs/Day Years Used Date Smoking Tobacco: Never Assessed Comments Unknown Sex and Gender Information Value Date Recorded Sex Assigned at Not on file Legal Sex Female 5:13 AM EST Gender Identity Not on file Sexual Orientation Not on file documented as of this encounter Progress Notes * Provider, Historical - 04/14/2009 12:00 AM EDT P: Restorative~T: 36 mg lidocaine w/ 1:100,000 epi. CRI, MP.~ - 31 (b) amalgam - re-prepped, condensed, carved to ideal.~ - 18 (o) resin - [id number].~ - 2 and 15 - [id number].~E: ++~N: 6 mrNote authored by: Anirudh Loza ([email or web address]) documented in this encounter Plan of Treatment Not on file documented as of this encounter Visit Diagnoses Not on filedocumented in this encounter Care Teams Artist Woodblock Relationship Specialty Start Date End Date Jazmin Barnett M.D. [address] [facility], [address] [place] [address] PCP - General 06/12/08 documented as of this encounter
--- OUTSIDE RECORDS SUMMARY | 2025-05-02 10:18 | XMS_ITS | Encounter Summary ---
Author Organization [facility] Address [address] [place] [address] Care Team Providers Care Technical Support Associate Name Role Phone Jazmin Barnett M.D. Primary Care Provider [phone] Encounter Details Date Type Department Care Team (Late st Contact Info) Description 08/14/2007 Clinical Note [facility] Division of Dentistry [address] [place] [phone] Provider, Historical Social History Tobacco Use Types Packs/Day Years Used Date Smoking Tobacco: Never Assessed Comments Unknown Sex and Gender Information Value Date Recorded Sex Assigned at Not on file Legal Sex Female 5:13 AM EST Gender Identity Not on file Sexual Orientation Not on file documented as of this encounter Progress Notes * Provider, Historical - 08/14/2007 12:00 AM EDT P: recall~T: reviewed med hx. io/eo exam. 2BW. incipient decay charted. emphasized improved [place] (flossing) and ACT fl rinse. prophy, fl. ~E: ++~N: phase 1 tx~~I approve the patient-related informationobtained by the health assistant, hygienist, resident and/or attending pertaining to the patient's condition, findings, history and/or treatment.~Note authored by: Yarely Sherman ([email or web address]) documented in this encounter Plan of Treatment Not on file documented as of this encounter Visit Diagnoses Not on filedocumented in this encounter Care Teams Technical Support Associate Relationship Specialty Start Date End Date Jazmin Barnett M.D. [address] [facility] [address] [place] [address] PCP - General 06/12/08 documented as of this encounter
--- OUTSIDE RECORDS SUMMARY | 2025-05-02 10:18 | XMS_ITS | Encounter Summary ---
Author Organization [facility] Address [address] [place] [address] Care Team Providers Care Pulpwood Buyer Name Role Phone Jazmin Barnett M.D. Primary Care Provider [phone] Encounter Details Date Type Department Care Team (Late st Contact Info) Description 10/10/2007 Clinical Note [facility] Division of Dentistry [address] [place] [phone] Provider, Historical Social History Tobacco Use Types Packs/Day Years Used Date Smoking Tobacco: Never Assessed Comments Unknown Sex and Gender Information Value Date Recorded Sex Assigned at Not on file Legal Sex Female 5:13 AM EST Gender Identity Not on file Sexual Orientation Not on file documented as of this encounter Progress Notes * Provider, Historical - 10/10/2007 12:00 AM EST P: Patient presents for sealants on and 30. Upon exam, sonia cavitaion presents on mesial of #19that will require latter-day (previously charted as incipient, but at current time direct exploration/visualization available and defiante cavitation presesnt). [facility] did not have time today to wait for latter-day, so will reappoint.~T: #30 - A/E, Optibond, Clinpro Sealant~E: +/+~N: #19 - (mo) resin~~I approve the patient-related information obtained by the executive personal assistant, hygienist, resident and/or attending pertaining to the patient's condition, findings, history and/or treatment.~Note authored by: Chintan Brunson ([email or web address]) documented in this encounter Plan of Treatment Not on file documented as of this encounter Visit Diagnoses Not on filedocumented in this encounter Care Teams Pulpwood Buyer Relationship Specialty Start Date End Date Jazmin Barnett M.D. [address] [place] [address] PCP - General 06/12/08 documented as of this encounter
--- OUTSIDE RECORDS SUMMARY | 2025-05-02 10:18 | XMS_ITS | Encounter Summary ---
Author Organization [facility] Address [address] [place] [address] Care Team Providers Care Cashier And Waiter/Waitress Name Role Phone Jazmin Barnett M.D. Primary Care Provider [phone] Encounter Details Date Type Department Care Team (Late st Contact Info) Description 03/20/2009 Clinical Note [facility] Division of Dentistry [address] [place] [phone] Provider, Historical Social History Tobacco Use Types Packs/Day Years Used Date Smoking Tobacco: Never Assessed Comments Unknown Sex and Gender Information Value Date Recorded Sex Assigned at Not on file Legal Sex Female 5:13 AM EST Gender Identity Not on file Sexual Orientation Not on file documented as of this encounter Progress Notes * Provider, Historical - 03/20/2009 12:00 AM EDT P: Pt in for ER. Filling fell out at school during lunch. ~~T: [facility]. EOE WNL. IOE: #31(B) had previous amalgam filling. No history of pain. Today hurt to drink water, and eat. No throbbing for spontaneous pain. Small amount of recurrent decay in cavity prep.~Placed a sedative filling in existing prep: tempit. Asked pt to brush gently, and avoid hard crunchy foods.~~E: +/+ ~~N: Pt has appointment on 04/14. Please eval #31(B) and plan for definitive treatment~~I approve the patient-related information obtained by the review assistant, hygienist, resident and/or attending pertaining to the patient's condition, findings, history and/or treatment.~Note authored by: Claudia Willams ([email or web address]) documented in this encounter Plan of Treatment Not on file documented as of this encounter Visit Diagnoses Not on filedocumented in this encounter Care Teams Cashier And Waiter/Waitress Relationship Specialty Start Date End Date Jazmin Barnett M.D. [address] [facility] [place] [address] PCP - General 06/12/08 documented as of this encounter
--- OUTSIDE RECORDS SUMMARY | 2025-05-02 10:18 | XMS_ITS | Encounter Summary ---
Author Organization [facility] Address [address] [place] [address] Care Team Providers Care Rn Acls Name Role Phone Jazmin Barnett M.D. Primary Care Provider [phone] Encounter Details Date Type Department Care Team (Late st Contact Info) Description 03/20/2009 Clinical Note [facility] Division of Dentistry [address] [place] [phone] Provider, Historical Social History Tobacco Use Types Packs/Day Years Used Date Smoking Tobacco: Never Assessed Comments Unknown Sex and Gender Information Value Date Recorded Sex Assigned at Not on file Legal Sex Female 5:13 AM EST Gender Identity Not on file Sexual Orientation Not on file documented as of this encounter Progress Notes * Provider, Historical - 03/20/2009 12:00 AM EDT I was present for the procedure. Reviewed the resident note and concurred.~Note authored by: Fausto Juares ([email or web address]) documented in this encounter Plan of Treatment Not on file documented as of this encounter Visit Diagnoses Not on filedocumented in this encounter Care Teams Rn Acls Relationship Specialty Start Date End Date Jazmin Barnett M.D. [address] [facility] [address] [place] [address] PCP - General 06/12/08 documented as of this encounter
--- OUTSIDE RECORDS SUMMARY | 2025-05-02 10:18 | XMS_ITS | Encounter Summary ---
Author Organization [facility] Address [address] [place] [address] Care Team Providers Care Exercise Teacher Name Role Phone Jazmin Barnett M.D. Primary Care Provider [phone] Encounter Details Date Type Department Care Team (Late st Contact Info) Description 04/14/2009 Clinical Note [facility] Division of Dentistry [address] [place] [phone] Provider, Historical Social History Tobacco Use Types Packs/Day Years Used Date Smoking Tobacco: Never Assessed Comments Unknown Sex and Gender Information Value Date Recorded Sex Assigned at Not on file Legal Sex Female 5:13 AM EST Gender Identity Not on file Sexual Orientation Not on file documented as of this encounter Progress Notes * Provider, Historical - 04/14/2009 12:00 AM EDT P: Pt presents for periodic recall appt.~T: [facility], IOE/EOE, prophy, fl- tx completed. BWs taken/read/dx. Decay charted.~E: ++~N: 31 (b) and seal 2~2) 18 (o) and seal 15~~I approve the patient-related information obtained by the gynecological assistant, hygienist, resident and/or attending pertaining to the patient's condition, findings, history and/or treatment.~Note authored by: Yuri Oglesby ([email or web address]) documented in this encounter Plan of Treatment Not on file documented as of this encounter Visit Diagnoses Not on filedocumented in this encounter Care Teams Exercise Teacher Relationship Specialty Start Date End Date Jazmin Barnett M.D. [address] [facility] [place] [address] PCP - General 06/12/08 documented as of this encounter
--- OUTSIDE RECORDS SUMMARY | 2025-05-02 10:18 | XMS_ITS | Encounter Summary ---
Author Organization [facility] Address [address] [place] [address] Care Team Providers Care Instructional Coach Name Role Phone Jazmin Barnett M.D. Primary Care Provider [phone] Encounter Details Date Type Department Care Team (Late st Contact Info) Description 07/24/[address] [facility] Division of Dentistry [address] [place] [phone] Provider, Historical Social History Tobacco Use Types Packs/Day Years Used Date Smoking Tobacco: Never Assessed Comments Unknown Sex and Gender Information Value Date Recorded Sex Assigned at Not on file Legal Sex Female 5:13 AM EST Gender Identity Not on file Sexual Orientation Not on file documented as of this encounter Progress Notes * Provider, Historical - 07/24/2008 12:00 AM EDT I was present for the exam and history. Reviewed the findings. Agree with the treatment plan.~Note authored by: Matthew Miner ([email or web address]) documented in this encounter Plan of Treatment Not on file documented as of this encounter Visit Diagnoses Not on filedocumented in this encounter Care Teams Instructional Coach Relationship Specialty Start Date End Date Jazmin Barnett M.D. [address] [facility], [address] [place] [address] PCP - General 06/12/08 documented as of this encounter
--- OUTSIDE RECORDS SUMMARY | 2025-05-02 10:18 | XMS_ITS | Encounter Summary ---
Author Organization [facility] Address [address] [place] [address] Care Team Providers Care Hydrotechnical Specialist Name Role Phone Jazmin Barnett M.D. Primary Care Provider [phone] Encounter Details Date Type Department Care Team (Late st Contact Info) Description 11/30/2007 Clinical Note [facility] Division of Dentistry [address] [place] [phone] Provider, Historical Social History Tobacco Use Types Packs/Day Years Used Date Smoking Tobacco: Never Assessed Comments Unknown Sex and Gender Information Value Date Recorded Sex Assigned at Not on file Legal Sex Female 5:13 AM EST Gender Identity Not on file Sexual Orientation Not on file documented as of this encounter Progress Notes * Provider, Historical - 11/30/2007 12:00 AM EST I was present for the procedure. Reviewed the resident note and concurred.~Note authored by: Fausto Juares ([email or web address]) documented in this encounter Plan of Treatment Not on file documented as of this encounter Visit Diagnoses Not on filedocumented in this encounter Care Teams Hydrotechnical Specialist Relationship Specialty Start Date End Date Jazmin Barnett M.D. [address] [facility] [place] [address] PCP - General 06/12/08 documented as of this encounter
--- OUTSIDE RECORDS SUMMARY | 2025-05-02 10:18 | XMS_ITS | Encounter Summary ---
Author Organization [facility] Address [address] [place] [address] Care Team Providers Care Oil Well Services Supervisor Name Role Phone Jazmin Barnett M.D. Primary Care Provider [phone] Encounter Details Date Type Department Care Team (Late st Contact Info) Description 11/30/2007 Clinical Note [facility] Division of Dentistry [address] [place] [phone] Provider, Historical Social History Tobacco Use Types Packs/Day Years Used Date Smoking Tobacco: Never Assessed Comments Unknown Sex and Gender Information Value Date Recorded Sex Assigned at Not on file Legal Sex Female 5:13 AM EST Gender Identity Not on file Sexual Orientation Not on file documented as of this encounter Progress Notes * Provider, Historical - 11/30/2007 12:00 AM EST Dentist/Manager Data Warehouse verified correct patient, correct site, correct procedure, correct positioning ofpatient and special equipment if needed, with Dentist/Manager Data Warehouse performing procedure immediately prior to beginning the procedure.~Note authored by: Heather Winters ([email or web address]) documented in this encounter Plan of Treatment Not on file documented as of this encounter Visit Diagnoses Not on filedocumented in this encounter Care Teams Oil Well Services Supervisor Relationship Specialty Start Date End Date Jazmin Barnett M.D. [address] [facility] [address] [place] [address] PCP - General 06/12/08 documented as of this encounter
--- OUTSIDE RECORDS SUMMARY | 2025-05-02 10:18 | XMS_ITS | Encounter Summary ---
Author Organization [facility] Address [address] [place] [address] Care Team Providers Care Tire Assembler Name Role Phone Jazmin Barnett M.D. Primary Care Provider [phone] Encounter Details Date Type Department Care Team (Late st Contact Info) Description 06/12/2008 Clinical Note [facility] Division of Dentistry [address] [place] [phone] Provider, Historical Social History Tobacco Use Types Packs/Day Years Used Date Smoking Tobacco: Never Assessed Comments Unknown Sex and Gender Information Value Date Recorded Sex Assigned at Not on file Legal Sex Female 5:13 AM EST Gender Identity Not on file Sexual Orientation Not on file documented as of this encounter Progress Notes * Provider, Historical - 06/12/2008 12:00 AM EDT I was present for the exam and history. Reviewed the findings and agree with the treatment plan.~Note authored by: Yoshi Palma ([email or web address]) documented in this encounter Plan of Treatment Not on file documented as of this encounter Visit Diagnoses Not on filedocumented in this encounter Care Teams Tire Assembler Relationship Specialty Start Date End Date Jazmin Barnett M.D. [address] [facility] [place] [address] PCP - General 06/12/08 documented as of this encounter
[2025-05-03 05:14] LABS: Hepatitis B Surface Antigen Negative (Negative)
== END 2025-05-01 23:59 | disposition home or self-care (01) ==
LOC: LAB.DROPOF 05-02 10:06
PROVIDERS: PCP Nurse Practitioner Family; Visit Provider Nurse Practitioner Family
DX: Z00.00 Encounter for general adult medical examination without abnormal findings (principal); Z11.59 Encounter for screening for other viral diseases
CPT/HCPCS: 80053; 84436; 84443; 85025; 86803; 87340; 87389